=== PATIENT | male | born 2000 | race Caucasian/White ===

== ENCOUNTER 2021-05-21 07:25 | Emergency (ER) | payer BC ==
[2021-05-21 07:48] VITALS: BP 141/78; PULSE 86
[2021-05-21] MEDS ORDERED: Sodium Chloride 0.9% 10 ML Syringe FLUSH PRN (08:18)
[2021-05-21] MEDS: Sodium Chloride 0.9% 1,000 ML IV ONE (08:26)
[2021-05-21] MEDS: Ondansetron 4 MG/2 ML SDV IVPUSH ONE (08:33)
== END 2021-05-21 09:30 | disposition home or self-care (01) ==
LOC: KA.ED 07:25
DX: R19.7 Diarrhea, unspecified (principal); J34.89 Other specified disorders of nose and nasal sinuses; K21.9 Gastro-esophageal reflux disease without esophagitis; Z86.16 Personal history of COVID-19; Z87.891 Personal history of nicotine dependence
CPT/HCPCS: 96374; 99283; J2405; J7030

== ENCOUNTER 2021-06-02 23:09 | Emergency (ER) | payer BC ==
[2021-06-02] MEDS ORDERED: Triamcinolone Acetonide 0.1% Oint 15 GM Tube TOP SCH (23:15)
[2021-06-02] MEDS ORDERED: Dexamethasone 4 MG/ML SDV IM ONE (23:24)
== END 2021-06-02 23:33 | disposition home or self-care (01) ==
LOC: KA.ED 23:09
DX: L40.50 Arthropathic psoriasis, unspecified (principal); Z88.1 Allergy status to other antibiotic agents; Z86.16 Personal history of COVID-19
CPT/HCPCS: 96372; 99283; 99284; A9270; J1100

== ENCOUNTER 2021-06-04 10:12 | Emergency (ER) | payer BC ==
[2021-06-04] MEDS ORDERED: Ketorolac 60 MG/2 ML SDV IM ONE (10:48)
== END 2021-06-04 11:40 | disposition home or self-care (01) ==
LOC: KA.ED 10:12
DX: R07.81 Pleurodynia (principal); K21.9 Gastro-esophageal reflux disease without esophagitis; Z88.1 Allergy status to other antibiotic agents
CPT/HCPCS: 71101-RT; 96372; 99283; 99283-25; J1885

== ENCOUNTER 2021-06-07 21:42 | Emergency (ER) | payer BC ==
[2021-06-07] MEDS ORDERED: methylPREDNISolone Sodium Succinate 125 MG/2 ML SDV IM ONE (22:18)
== END 2021-06-07 22:40 | disposition home or self-care (01) ==
LOC: KA.ED 21:42
DX: L40.9 Psoriasis, unspecified (principal); Z86.16 Personal history of COVID-19; Z79.899 Other long term (current) drug therapy; Z88.1 Allergy status to other antibiotic agents
CPT/HCPCS: 96372; 99282; 99283; J2930

== ENCOUNTER 2021-06-27 07:20 | Emergency (ER) | payer BC ==
[2021-06-27] MEDS ORDERED: Azithromycin 250 MG Tab PO ONE (08:08)
[2021-06-27] MEDS ORDERED: Azithromycin 250 MG Tab ONE (08:10)
== END 2021-06-27 08:30 | disposition home or self-care (01) ==
LOC: KA.ED 07:20
DX: J06.9 Acute upper respiratory infection, unspecified (principal); R05.9 Cough, unspecified; R09.81 Nasal congestion; Z86.16 Personal history of COVID-19; Z79.899 Other long term (current) drug therapy; Z88.1 Allergy status to other antibiotic agents
CPT/HCPCS: 99283; 99284; A9270-GY

== ENCOUNTER 2021-07-04 09:02 | Emergency (ER) | payer OTHER ==
[2021-07-04] MEDS ORDERED: Ketorolac 60 MG/2 ML SDV IM ONE (09:44)
[2021-07-04] MEDS ORDERED: Ketorolac 10 MG Tab PO ONE (10:43)
[2021-07-04] MEDS ORDERED: Cyclobenzaprine 10 MG Tab PO ONE (10:44)
== END 2021-07-04 11:20 | disposition home or self-care (01) ==
LOC: KA.ED 09:02
DX: S20.211A Contusion of right front wall of thorax, initial encounter (principal); S00.93XA Contusion of unspecified part of head, initial encounter; S49.91XA Unspecified injury of right shoulder and upper arm, initial encounter; Z86.16 Personal history of COVID-19; Z79.899 Other long term (current) drug therapy; Z88.1 Allergy status to other antibiotic agents; W01.10XA Fall on same level from slipping, tripping and stumbling with subsequent striking against unspecified object, initial encounter; Y99.0 Civilian activity done for income or pay
CPT/HCPCS: 71046; 73030-RT; 96372; 99283-25; 99284; A9270-GY; J1885

== ENCOUNTER 2021-09-21 20:40 | Emergency (ER) | payer BC ==
[2021-09-21 21:34] VITALS: BP 153/86; PULSE 101
== END 2021-09-21 21:58 | disposition home or self-care (01) ==
LOC: KA.ED 20:40
DX: G56.01 Carpal tunnel syndrome, right upper limb (principal); Z88.1 Allergy status to other antibiotic agents; Z79.899 Other long term (current) drug therapy; Z86.16 Personal history of COVID-19
CPT/HCPCS: 99283

== ENCOUNTER 2021-10-07 22:17 | Emergency (ER) | payer BC ==
[2021-10-07] MEDS: Tetracaine HCl/PF 0.5% 4 ML Bottle EYERT ONE (22:42)
[2021-10-07] MEDS: Fluorescein 1 MG Ophth Strip EYERT ONE (22:45)
[2021-10-07] MEDS: Ciprofloxacin 0.3% Ophth Soln 5 ML Bottle ONE (23:07)
[2021-10-07] MEDS: Ciprofloxacin 0.3% Ophth Soln 5 ML Bottle EYERT SCH (23:09)
== END 2021-10-07 23:13 | disposition home or self-care (01) ==
LOC: KA.ED 22:17 → SUPCPDRO 22:17 → KA.ED 23:13
DX: T15.01XA Foreign body in cornea, right eye, initial encounter (principal); Z88.1 Allergy status to other antibiotic agents; Z86.16 Personal history of COVID-19
CPT/HCPCS: 65205; 99283; A9270-GY

== ENCOUNTER 2021-11-20 16:00 | Emergency (ER) | payer BC ==
[2021-11-20] MEDS ORDERED: methylPREDNISolone Sodium Succinate 125 MG/2 ML SDV IVPUSH ONE (16:22)
[2021-11-20] MEDS ORDERED: predniSONE 20 MG Tab PO ONE (16:24)
== END 2021-11-20 16:25 | disposition home or self-care (01) ==
LOC: KA.ED 16:00
DX: L40.9 Psoriasis, unspecified (principal)
CPT/HCPCS: 96374; 99282; J2930; J7512

== ENCOUNTER 2022-07-09 18:12 | Emergency (ER) | payer BC ==
[2022-07-09 19:06] LABS: APPEARANCE,URINE CLEAR (CLEAR); BILIRUBIN,URINE NEGATIVE (NEGATIVE); COLOR,URINE YELLOW (YELLOW); GLUCOSE,URINE NEGATIVE (NEGATIVE); KETONES,URINE NEGATIVE (NEGATIVE); LEUKOCYTE ESTERASE,URINE NEGATIVE (NEGATIVE); NITRITE,URINE NEGATIVE (NEGATIVE); OCCULT BLOOD,URINE NEGATIVE (NEGATIVE); PH,URINE 5.5 (5.0-9.0); PROTEIN,URINE NEGATIVE (NEGATIVE); UROBILINOGEN,URINE 0.2 E.U./dL (0.2-1.0)
[2022-07-09 19:12] LABS: BASOPHILS ABSOLUTE AUTO 0.08 10^3/uL (0.00-0.10); BASOPHILS PERCENT AUTO 0.7 % (0.0-1.0); EOSINOPHILS ABSOLUTE AUTO 0.32 10^3/uL (0.10-0.30); EOSINOPHILS PERCENT AUTO 2.9 % (1.0-3.0); HEMATOCRIT 45.6 % (40.0-52.0); HEMOGLOBIN 15.6 g/dL (13.0-17.0); IMMATURE GRAN ABSOLUTE AUTO 0.02 10^3/uL (0.00-0.50); IMMATURE GRAN PERCENT AUTO 0.2 % (0.0-5.0); LYMPHOCYTES ABSOLUTE AUTO 2.97 10^3/uL (1.00-4.00); LYMPHOCYTES PERCENT AUTO 26.9 % (20.0-40.0); MEAN CORPUSCULAR HEMOGLOBIN 28.9 pg (27.0-31.0); MEAN CORPUSCULAR HGB CONC 34.2 g/dL (32.0-36.0); MEAN CORPUSCULAR VOLUME 84.6 fL (82.0-92.0); MEAN PLATELET VOLUME 9.7 fL (7.4-10.4); MONOCYTES ABSOLUTE AUTO 0.86 10^3/uL (0.10-0.80); MONOCYTES PERCENT AUTO 7.8 % (2.0-8.0); NEUTROPHILS PERCENT AUTO 61.5 % (50.0-70.0); PLATELET COUNT,PLT 285 10^3/uL (150-400); RED BLOOD CELL COUNT 5.39 10^6/uL (4.50-6.00); RED CELL DISTRIBUTION WIDTH 11.9 % (11.5-14.5); WHITE BLOOD CELL COUNT,WBC 11.05 10^3/uL (5.00-10.00)
[2022-07-09 19:25] LABS: BACTERIA,URINE RARE /HPF (NONE TO FEW); EPITHELIAL CELLS,URINE RARE /LPF; RBC,URINE 0-5 /HPF (0-5); WBC,URINE 0-5 /HPF (0-5)
== END 2022-07-09 19:47 | disposition home or self-care (01) ==
LOC: KA.ED 18:12
DX: N48.89 Other specified disorders of penis (principal); J45.909 Unspecified asthma, uncomplicated; Z86.16 Personal history of COVID-19; Z88.1 Allergy status to other antibiotic agents
CPT/HCPCS: 36415; 81001; 85025; 99283; 99284

== ENCOUNTER 2022-11-05 21:01 | Emergency (ER) | payer BC ==
[2022-11-05] MEDS ORDERED: LORazepam 0.5 MG Tab PO ONE (21:11)
[2022-11-05] MEDS ORDERED: Ondansetron 4 MG Tab.DIS PO ONE (21:11)
== END 2022-11-05 21:45 | disposition home or self-care (01) ==
LOC: KA.ED 21:01
DX: F41.9 Anxiety disorder, unspecified (principal); F43.10 Post-traumatic stress disorder, unspecified; F19.959 Other psychoactive substance use, unspecified with psychoactive substance-induced psychotic disorder, unspecified; J45.909 Unspecified asthma, uncomplicated; K21.9 Gastro-esophageal reflux disease without esophagitis; Z88.1 Allergy status to other antibiotic agents
CPT/HCPCS: 99284; A9270

== ENCOUNTER 2022-12-13 12:15 | Emergency (ER) | payer OTHER, BC ==
[2022-12-13] MEDS ORDERED: Ketorolac 30 MG/ML SDV IVPUSH ONE (12:59)
[2022-12-13] MEDS ORDERED: Sodium Chloride 0.9% 1,000 ML IV ONE (13:00)
[2022-12-13 13:19] LABS: LACTIC ACID 0.7 mmol/L (0.4-2.0)
[2022-12-13 13:26] LABS: STREP A BY PCR NOT DETECTED (NOT DETECT)
[2022-12-13 13:30] LABS: INFLUENZA A NAA NEGATIVE (NEGATIVE); INFLUENZA B NAA NEGATIVE (NEGATIVE); RESPIRATORY SYNCYTIAL VIR NAA NEGATIVE (NEGATIVE)
[2022-12-13 13:31] LABS: CORONAVIRUS COVID-19 NAA NEGATIVE (NEGATIVE)
== END 2022-12-13 14:30 | disposition home or self-care (01) ==
LOC: KA.ED 12:15
DX: D72.828 Other elevated white blood cell count (principal); R11.2 Nausea with vomiting, unspecified; J02.9 Acute pharyngitis, unspecified; Z20.822 Contact with and (suspected) exposure to COVID-19; Z86.16 Personal history of COVID-19; Z88.1 Allergy status to other antibiotic agents; Z91.018 Allergy to other foods; Z79.899 Other long term (current) drug therapy
CPT/HCPCS: 0241U; 36415; 83605; 87651-QW; 96361; 96374; 99284; 99284-25; J1885; J7030

== ENCOUNTER 2023-03-25 19:01 | Emergency (ER) | payer OTHER, BC ==
[2023-03-25] MEDS: Sodium Chloride 0.9% 10 ML Syringe FLUSH PRN (19:25)
[2023-03-25] MEDS: LORazepam 2 MG/ML SDV IVPUSH ONE ×2 (19:31→20:10)
[2023-03-25] MEDS: Sodium Chloride 0.9% 1,000 ML IV ONE (20:13)
[2023-03-25] MEDS: Sertraline 50 MG Tab PO ONE (21:21)
== END 2023-03-25 21:30 | disposition home or self-care (01) ==
LOC: KA.ED 19:01
DX: F41.0 Panic disorder [episodic paroxysmal anxiety] (principal); Z88.1 Allergy status to other antibiotic agents; Z91.018 Allergy to other foods; Z86.16 Personal history of COVID-19
CPT/HCPCS: 93010; 96374; 96376; 99284; 99284-25; A9270-GY; J2060; J3490; J7030

== ENCOUNTER 2023-03-29 07:06 | Emergency (ER) | payer OTHER, BC ==
[2023-03-29 08:18] LABS: BASOPHILS ABSOLUTE AUTO 0.04 10^3/uL (0.00-0.10); BASOPHILS PERCENT AUTO 0.7 % (0.0-1.0); EOSINOPHILS ABSOLUTE AUTO 0.22 10^3/uL (0.10-0.30); EOSINOPHILS PERCENT AUTO 3.9 % (1.0-3.0); HEMATOCRIT 44.7 % (40.0-52.0); HEMOGLOBIN 15.2 g/dL (13.0-17.0); IMMATURE GRAN ABSOLUTE AUTO 0.01 10^3/uL (0.00-0.50); IMMATURE GRAN PERCENT AUTO 0.2 % (0.0-5.0); LYMPHOCYTES PERCENT AUTO 14.4 % (20.0-40.0); MEAN CORPUSCULAR HEMOGLOBIN 29.5 pg (27.0-31.0); MEAN CORPUSCULAR VOLUME 86.8 fL (82.0-92.0); MEAN PLATELET VOLUME 9.4 fL (7.4-10.4); MONOCYTES PERCENT AUTO 14.4 % (2.0-8.0); NEUTROPHILS PERCENT AUTO 66.4 % (50.0-70.0); PLATELET COUNT,PLT 265 10^3/uL (150-400); RED BLOOD CELL COUNT 5.15 10^6/uL (4.50-6.00); RED CELL DISTRIBUTION WIDTH 12.3 % (11.5-14.5); WHITE BLOOD CELL COUNT,WBC 5.57 10^3/uL (5.00-10.00)
[2023-03-29 08:32] LABS: AMPHETAMINES SCREEN, URINE NEGATIVE (NEGATIVE); BARBITURATE SCREEN,URINE NEGATIVE (NEGATIVE); BENZODIAZEPINES SCREEN,URINE NEGATIVE (NEGATIVE); COCAINE METABOLITES,URINE NEGATIVE (NEGATIVE); METHADONE SCREEN, URINE NEGATIVE (NEGATIVE); METHAMPHETAMINES SCREEN, URINE NEGATIVE (NEGATIVE); OXYCODONE SCREEN,URINE NEGATIVE (NEGATIVE); PCP SCREEN,URINE NEGATIVE (NEGATIVE); PROPOXYPHENE SCREEN,URINE NEGATIVE (NEGATIVE); TCA SCREEN,URINE NEGATIVE (NEGATIVE); THC SCREEN,URINE 50 NG/ML NEGATIVE (NEGATIVE)
[2023-03-29 08:43] LABS: ALBUMIN 4.29 g/dL (3.40-5.00); ANION GAP 13.5 mmol/L (5-15); BILIRUBIN TOTAL 0.4 mg/dL (0.2-1.0); CALCIUM 9.1 mg/dL (8.7-10.3); CARBON DIOXIDE,CO2 32.3 mmol/L (21.0-32.0); CREATININE 0.82 mg/dL (0.51-1.17); EST CRCL DRUG DOSING (CG) 129.87 mL/min; POTASSIUM,K 3.8 mmol/L (3.5-5.1); PROTEIN TOTAL,TP 7.4 g/dL (6.4-8.2)
== END 2023-03-29 10:00 ==
LOC: KA.ED 07:06
DX: R45.851 Suicidal ideations (principal); F43.10 Post-traumatic stress disorder, unspecified; J45.909 Unspecified asthma, uncomplicated; Z86.16 Personal history of COVID-19; Z79.899 Other long term (current) drug therapy; Z91.018 Allergy to other foods; Z88.8 Allergy status to other drugs, medicaments and biological substances
CPT/HCPCS: 36415; 80053; 80305-QW; 85025; 99285

== ENCOUNTER 2024-08-10 16:02 | Emergency (ER) | payer BC | END 2024-08-10 17:20 | disposition home or self-care (01) | LOC: KA.ED 16:02 | DX: M43.6 Torticollis (principal); J02.9 Acute pharyngitis, unspecified; J45.909 Unspecified asthma, uncomplicated; K21.9 Gastro-esophageal reflux disease without esophagitis; Z86.16 Personal history of COVID-19; Z79.899 Other long term (current) drug therapy; Z88.1 Allergy status to other antibiotic agents; Z91.018 Allergy to other foods | CPT/HCPCS: 87651; 99283 ==

== ENCOUNTER 2024-08-21 14:51 | Emergency (ER) | payer BC ==
[2024-08-21 15:10] LABS: BASOPHILS ABSOLUTE AUTO 0.03 10^3/uL (0.00-0.10); BASOPHILS PERCENT AUTO 0.3 % (0.0-1.0); EOSINOPHILS ABSOLUTE AUTO 0.12 10^3/uL (0.10-0.30); EOSINOPHILS PERCENT AUTO 1.4 % (1.0-3.0); IMMATURE GRAN ABSOLUTE AUTO 0.04 10^3/uL (0.00-0.04); IMMATURE GRAN PERCENT AUTO 0.5 % (0.0-0.4); LYMPHOCYTES ABSOLUTE AUTO 1.24 10^3/uL (1.00-4.00); LYMPHOCYTES PERCENT AUTO 14.2 % (20.0-40.0); MEAN PLATELET VOLUME 9.2 fL (7.4-10.4); MONOCYTES ABSOLUTE AUTO 0.93 10^3/uL (0.10-0.80); MONOCYTES PERCENT AUTO 10.6 % (2.0-8.0); NEUTROPHILS ABSOLUTE AUTO 6.40 10^3/uL (2.50-7.00); NEUTROPHILS PERCENT AUTO 73.0 % (50.0-70.0); PLATELET COUNT,PLT 279 10^3/uL (150-400); RED BLOOD CELL COUNT 5.33 10^6/uL (4.50-6.00); RED CELL DISTRIBUTION WIDTH 11.7 % (11.5-14.5); WHITE BLOOD CELL COUNT,WBC 8.76 10^3/uL (5.00-10.00)
[2024-08-21] MEDS: Sodium Chloride 0.9% 10 ML Syringe FLUSH PRN (15:10)
[2024-08-21] MEDS: Lactated Ringers 1,000 ML IV ONE (15:10)
[2024-08-21] MEDS: Ondansetron 4 MG/2 ML SDV IVPUSH ONE (15:12)
[2024-08-21 15:26] LABS: ALANINE AMINOTRANSFERASE,ALT 84.0 U/L (14-63); ASPARTATE AMNIOTRANSFERASE,AST 37.0 U/L (15-37); BILIRUBIN TOTAL 0.7 mg/dL (0.2-1.0); BLOOD UREA NITROGEN,BUN 11.0 mg/dL (7-18); CARBON DIOXIDE,CO2 28.1 mmol/L (21.0-32.0); CHLORIDE,CL 100.0 mmol/L (98-107); CREATININE 0.79 mg/dL (0.51-1.17); EST CRCL DRUG DOSING (CG) 132.02 mL/min; GLUCOSE RANDOM 99.0 mg/dL (70-140); POTASSIUM,K 3.7 mmol/L (3.5-5.1); PROTEIN TOTAL,TP 7.5 g/dL (6.4-8.2); SODIUM,NA 141.0 mmol/L (136-145)
[2024-08-21 15:30] LABS: ESTIMATED GFR 126.0 mL/min (>=60)
[2024-08-21 16:41] LABS: APPEARANCE,URINE CLEAR (CLEAR); GLUCOSE,URINE NEGATIVE (NEGATIVE); OCCULT BLOOD,URINE NEGATIVE (NEGATIVE)
[2024-08-21 16:44] LABS: EPITHELIAL CELLS,URINE RARE /LPF
== END 2024-08-21 16:44 | disposition home or self-care (01) ==
LOC: KA.ED 14:51
DX: A08.4 Viral intestinal infection, unspecified (principal); J45.909 Unspecified asthma, uncomplicated; Z86.16 Personal history of COVID-19; Z88.8 Allergy status to other drugs, medicaments and biological substances; Z91.018 Allergy to other foods; Z79.52 Long term (current) use of systemic steroids; Z79.899 Other long term (current) drug therapy
CPT/HCPCS: 36415; 80053; 81001; 83690; 85025; 86308; 96361; 96374; 99284-25; A9270-GY; J2405; J7120